=== PATIENT | female | born 1985 | race Caucasian/White ===

== ENCOUNTER 2016-09-25 19:41 | Inpatient (IN) | payer OTHER ==
[~2016-09-25] VITALS: Ht 170.2 cm; Wt 83.9 kg
[~2016-09-25 19:41] MED LIST: Benzocaine TOP; IBUP600 PO; PERI8.6T PO
[2016-09-25] MEDS ORDERED: LACTATED RINGER'S 1000 ML INJ 1,000 ML IV PRN (20:22)
[2016-09-25] MEDS ORDERED: SODIUM CHLOR 0.9% 1000 ML INJ 1,000 ML OTHER PRN (20:22)
[2016-09-25] MEDS ORDERED: ONDANSETRON HCL 4 MG/2 ML VIAL IV PRN (20:30)
[2016-09-25] MEDS ORDERED: SODIUM CHLORID 0.9% 500 ML INJ 500 ML IV PRN (20:30)
[2016-09-25] MEDS ORDERED: LIDOCAINE HCL 1% 50 ML VIAL INFIL PRN (20:30)
[2016-09-25] MEDS ORDERED: CITRIC ACID-SODIUM CITRATE LIQ 30 ML UDC PO SCH (20:30)
[2016-09-25] MEDS ORDERED: ZANT150T2 PO (20:30)
[2016-09-25] MEDS ORDERED: LIDOCAINE HCL 1% 50 ML VIAL I-DERMAL PRN (20:30)
[2016-09-25] MEDS ORDERED: OXYTOCIN 30 UNITS-500ML PREMIX 500 ML IV ONE (20:30)
[2016-09-25] MEDS ORDERED: SODIUM CHLORIDE 0.9% FLUSH 5 ML FLUSH IV FLUSH PRN (20:30)
[2016-09-25] MEDS ORDERED: DINOPROSTONE 10 MG VAG INSERT VAGINAL ONE (20:30)
[2016-09-25] MEDS ORDERED: MINERAL OIL 10 ML VIAL TOPICAL PRN (20:30)
[2016-09-25 20:31] VITALS: BP 130/91; PULSE 78
[2016-09-25] MEDS ORDERED: SODIUM CHLOR 0.9% 1000 ML INJ 1,000 ML IV PRN (20:42)
[2016-09-25 20:45] VITALS: RESP 18; TEMP 98.2
[2016-09-25 21:07] LABS: AUTOMATED NEUTROPHIL # 7.1 TH/MM3 (1.8-7.7); BASOPHIL % 0.4 % (0.0-2.0); EOSINOPHIL # 0.1 TH/MM3 (0-0.4); EOSINOPHIL % 0.9 % (0.0-4.0); HEMATOCRIT 29.4 % (35.0-46.0); HEMO FLAGS DIFF FINAL; LYMPH % 17.4 % (9.0-44.0); LYMPHOCYTE # 1.7 TH/MM3 (1.0-4.8); MEAN CELL VOLUME 84.2 FL (80.0-100.0); MEAN CORPUSCULAR HEMOGLOBIN 28.1 PG (27.0-34.0); MEAN CORPUSCULAR HGB CONC 33.4 % (32.0-36.0); MONO % 7.2 % (0.0-8.0); NEUT % 74.1 % (16.0-70.0); PLATELET COUNT 214 TH/MM3 (150-450); RED BLOOD COUNT 3.48 MIL/MM3 (4.00-5.30); RED CELL DISTRIBUTION WIDTH 16.7 % (11.6-17.2); WHITE BLOOD COUNT 9.5 TH/MM3 (4.0-11.0)
[2016-09-25 21:09] LABS: BACTERIA, URINE RARE /hpf; BLOOD, URINE NEG (NEG); COMMENT (UR) CULT NOT INDICATED; CULTURE IF INDICATED CULT NOT INDICATED; GLUCOSE,URINE NEG (NEG); KETONE, URINE NEG (NEG); NITRITE,URINE NEG (NEG); SQUAMOUS EPITHELIAL CELL URINE 1 /hpf (0-5); URINE COLOR COLORLESS (YELLW/STRAW)
[2016-09-25 21:53] LABS: ALKALINE PHOSPHATASE 196 U/L (45-117); ALT (GPT) 14 U/L (10-53); ANION GAP 9 MEQ/L (5-15); AST (GOT) 14 U/L (15-37); BICARBONATE 24.8 MEQ/L (21.0-32.0); BLOOD UREA NITROGEN 14 MG/DL (7-18); CHLORIDE 101 MEQ/L (98-107); GLOMERULAR FILTRATION RATE 101 ML/MIN (>89); SODIUM (NA) 135 MEQ/L (136-145); TOTAL BILIRUBIN ADULT 0.1 MG/DL (0.2-1.0); URIC ACID 3.6 MG/DL (2.6-6.0)
[2016-09-26] VITALS (12 sets, daily range): BP systolic 127–146; BP diastolic 76–99; PULSE 86–105; RESP 18; TEMP 97.5–98
[2016-09-26] MEDS ORDERED: ePHEDrine/NS 25 MG/5 ML SYR ONE (01:57)
[2016-09-26] MEDS ORDERED: fentaNYL 2MCG-BUPIV 0.125% INJ 100 ML ONE (01:57)
--- NOTE | 2016-09-26 02:35 | PD.OB.DELI ---
Anesthesia: Lidocaine local to perineum Episiotomy: None Vaginal Delivery: Normal Presentation: Occiput anterior Nuchal Cord: x1 Delayed cord clamping (45 sec): No Infant: Female One Minute : 8 Five Minute : 9 Weight: 3080 Care: Suctioned, Spontaneous crying, Responded to stimulation Placenta: Spontaneous delivery, Intact Laceration: Perineal laceration, 2 deg Repair: Chromic running Tad Parker II, MD Sep 26, 2016 02:35
[2016-09-26] MEDS ORDERED: ZOLPIDEM TARTRATE 5 MG TAB PO PRN (02:45)
[2016-09-26] MEDS ORDERED: ACETAMINOPHEN 325 MG TAB PO PRN (02:45)
[2016-09-26] MEDS ORDERED: WITCH HAZEL 50%/GLYCERIN 12.5% 40 PAD JAR TOPICAL PRN (02:45)
[2016-09-26] MEDS ORDERED: SODIUM CHLORIDE 0.9% FLUSH 5 ML FLUSH IV PRN (02:45)
[2016-09-26] MEDS ORDERED: BENZOCAINE 20% TOPICAL SPRAY 60 ML CAN TOPICAL PRN (02:45)
[2016-09-26] MEDS: oxyCODONE/ACETAMINOPHEN 5 MG/325 MG TAB PO PRN ×2 (02:45→06:38)
[2016-09-26] MEDS ORDERED: ONDANSETRON ODT 4 MG TAB PO PRN (02:45)
[2016-09-26] MEDS ORDERED: oxyCODONE/ACETAMINOPHEN 5 MG/325 MG TAB PO PRN (02:45)
[2016-09-26] MEDS ORDERED: ALUMINUM/MAGNESIUM/SIMETH 30 ML CUP PO PRN (02:45)
[2016-09-26] MEDS: IBUPROFEN 600 MG TAB PO PRN ×3 (02:45→20:20)
[2016-09-26] MEDS: DOCUSATE SODIUM 50 MG/SENNA 8.6 MG TAB PO PRN ×2 (05:37→20:20)
--- NOTE | 2016-09-26 08:31 | HHI.OB ---
Subjective Post Day: 0 Remarks Doing well, precipitous delivery last AM, Objective Vitals/I&O Vital Signs Date Time Temp Pulse Resp B/P Pulse Ox O2 Delivery O2 Flow Rate FiO2 09/26/16 08:00 98.0 94 18 131/79 09/26/16 05:15 97.5 97 18 135/89 09/26/16 04:15 90 142/83 09/26/16 04:00 90 134/87 09/26/16 03:45 104 133/90 09/26/16 03:30 91 132/82 09/26/16 03:15 91 127/79 09/26/16 03:00 18 09/26/16 03:00 89 129/85 09/26/16 02:45 97 128/76 09/26/16 02:45 97.9 18 09/26/16 02:37 105 131/81 09/26/16 00:14 86 136/99 09/26/16 00:00 97 146/95 09/26/16 00:00 97 146/95 09/26/16 00:00 97.9 18 09/25/16 20:45 98.2 18 09/25/16 20:31 78 130/91 Objective Remarks GENERAL: Well-nourished, well-developed patient. CARDIOVASCULAR: Regular rate and rhythm without murmurs, gallops, or rubs. RESPIRATORY: Breath sounds equal bilaterally. No accessory muscle use. ABDOMEN/GI: Abdomen soft, non-tender. Fundus: Firm, non-tender at umbilicus. GENITOURINARY: Light to moderate bleeding. EXTREMITIES: No cyanosis or edema, non-tender, without signs of DVT. Medications and IVs Current Medications Medications (Trade) Dose Ordered Sig/Isaiah Route Start Time Stop Time Status Last Admin Lactated Ringer's 1,000 ml @ 125 mls/hr Q8H IV 09/25/16 20:22 Lactated Ringer's 1,000 ml @ 3,000 mls/hr Q20M PRN IV 09/25/16 20:22 Sodium Chloride 500 ml @ 1,000 mls/hr ONCE PRN IV 09/25/16 20:30 10/25/16 20:29 (NS 1000 ml Inj) 1,000 ml @ 100 mls/hr Q10H PRN IV 09/25/16 20:42 (Zofran Inj) 4 mg Q6H PRN IV 09/25/16 20:30 (fentaNYL INJ) 50 mcg Q1H PRN IV PUSH 09/25/16 20:30 (fentaNYL INJ) 100 mcg Q1H PRN IV PUSH 09/25/16 20:30 (Muri-Lube Oil) 10 ml UNSCH PRN TOPICAL 09/25/16 20:30 (NS Flush) 2 ml BID IV FLUSH 09/25/16 21:00 IV Flush 2 ml 2 ml UNSCH PRN IV FLUSH 09/25/16 20:30 (NS 1000 ml Inj) 1,000 ml @ 0 mls/hr Q0M PRN OTHER 09/25/16 20:22 09/26/16 20:21 (NS Flush) 2 ml BID IV 09/26/16 09:00 (NS Flush) 2 ml UNSCH PRN IV 09/26/16 02:45 (Tylenol) 650 mg Q4H PRN PO 09/26/16 02:45 (Motrin) 600 mg Q6H PRN PO 09/26/16 02:45 09/26/16 02:45 (Percocet 5-325 Mg) 1 tab Q4H PRN PO 09/26/16 02:45 (Percocet 5-325 Mg) 2 tab Q4H PRN PO 09/26/16 02:45 09/26/16 06:38 (Americaine 20% Top Spr) 1 spray Q4H PRN TOPICAL 09/26/16 02:45 09/26/16 05:37 (Tucks Pads) 1 applic QID PRN TOPICAL 09/26/16 02:45 09/26/16 05:37 (Alicia-Colace) 2 tab Q12H PRN PO 09/26/16 02:45 09/26/16 05:37 (Ambien) 5 mg HS PRN PO 09/26/16 02:45 (M-M-R Ii Inj) 0.5 ml ONCE ONCE SQ 09/26/16 16:00 09/26/16 16:01 (Boostrix Inj) 0.5 ml ONCE ONCE IM 09/26/16 16:00 09/26/16 16:01 (Mag-Al Plus Susp Liq) 15 ml Q8H PRN PO 09/26/16 02:45 (Zofran Odt) 4 mg Q6H PRN PO 09/26/16 02:45 Assessment/Plan Assessment and Plan PPD#0, Stable, will watch BP, GBS+, Discharge Planning Does not meet criteria Berhane Garcia MD Sep 26, 2016 08:31
[2016-09-26] MEDS ORDERED: DIPHTH/TETANUS/ACEL PERTUSSIS (BOOSTER) 0.5 ML VIAL/PFS IM ONE (16:00)
[2016-09-26] MEDS ORDERED: MEASLES, MUMPS, RUBELLA VACCINE 0.5 ML VIAL SQ ONE (16:00)
[2016-09-27] MEDS: IBUPROFEN 600 MG TAB PO PRN ×3 (08:37→20:38)
[2016-09-27] MEDS: DOCUSATE SODIUM 50 MG/SENNA 8.6 MG TAB PO PRN (08:37)
[2016-09-27] MEDS: SODIUM CHLORIDE 0.9% FLUSH 5 ML FLUSH IV SCH (09:00)
[2016-09-27] MEDS: SODIUM CHLORIDE 0.9% FLUSH 5 ML FLUSH IV FLUSH SCH (09:00)
--- NOTE | 2016-09-27 11:28 | HHI.OB ---
Subjective Post Day: 1 Remarks PPD#1, , BP stable, GBS + Objective Objective Remarks GENERAL: Well-nourished, well-developed patient. CARDIOVASCULAR: Regular rate and rhythm without murmurs, gallops, or rubs. RESPIRATORY: Breath sounds equal bilaterally. No accessory muscle use. ABDOMEN/GI: Abdomen soft, non-tender. Fundus: Firm, non-tender at umbilicus. GENITOURINARY: Light to moderate bleeding. EXTREMITIES: No cyanosis or edema, non-tender, without signs of DVT. Medications and IVs Current Medications Medications (Trade) Dose Ordered Sig/Isaiah Route Start Time Stop Time Status Last Admin Lactated Ringer's 1,000 ml @ 125 mls/hr Q8H IV 09/25/16 20:22 Lactated Ringer's 1,000 ml @ 3,000 mls/hr Q20M PRN IV 09/25/16 20:22 Sodium Chloride 500 ml @ 1,000 mls/hr ONCE PRN IV 09/25/16 20:30 10/25/16 20:29 (NS 1000 ml Inj) 1,000 ml @ 100 mls/hr Q10H PRN IV 09/25/16 20:42 (Zofran Inj) 4 mg Q6H PRN IV 09/25/16 20:30 (fentaNYL INJ) 50 mcg Q1H PRN IV PUSH 09/25/16 20:30 (fentaNYL INJ) 100 mcg Q1H PRN IV PUSH 09/25/16 20:30 (Muri-Lube Oil) 10 ml UNSCH PRN TOPICAL 09/25/16 20:30 (NS Flush) 2 ml BID IV FLUSH 09/25/16 21:00 (NS Flush) 2 ml UNSCH PRN IV FLUSH 09/25/16 20:30 (NS Flush) 2 ml BID IV 09/26/16 09:00 (NS Flush) 2 ml UNSCH PRN IV 09/26/16 02:45 (Tylenol) 650 mg Q4H PRN PO 09/26/16 02:45 (Motrin) 600 mg Q6H PRN PO 09/26/16 02:45 09/27/16 08:37 (Percocet 5-325 Mg) 1 tab Q4H PRN PO 09/26/16 02:45 09/26/16 14:17 (Percocet 5-325 Mg) 2 tab Q4H PRN PO 09/26/16 02:45 09/26/16 06:38 (Americaine 20% Top Spr) 1 spray Q4H PRN TOPICAL 09/26/16 02:45 09/26/16 05:37 (Tucks Pads) 1 applic QID PRN TOPICAL 09/26/16 02:45 09/26/16 05:37 (Alicia-Colace) 2 tab Q12H PRN PO 09/26/16 02:45 09/27/16 08:37 (Ambien) 5 mg HS PRN PO 09/26/16 02:45 (Mag-Al Plus Susp Liq) 15 ml Q8H PRN PO 09/26/16 02:45 (Zofran Odt) 4 mg Q6H PRN PO 09/26/16 02:45 Assessment/Plan Assessment and Plan PPD#1, Stable, BPR normal, GBS+, Discharge Planning Does not meet criteria Attending Attestation Seen by Berhane Blair MD Sep 27, 2016 11:28
[2016-09-27] MEDS ORDERED: IBUP-232 PO (11:29)
--- NOTE | 2016-09-27 11:30 | HHI.DS ---
Admission Date Sep 25, 2016 at 19:41 Admitting Diagnosis Diagnosis: Vaginal Delivery: Normal Infant: Female Pt Condition on Discharge: Good Discharge Disposition: Discharge Home Discharge Instructions Diet Instructions: As Tolerated, No Restrictions Activities You Can Perform: Shower Only-No Bath Activities to Avoid: Driving for 24 hrs, Prolonged Standing, Strenuous Activity , Sexual Activity Berhane Garcia MD Sep 27, 2016 11:30
[2016-09-27] MEDS: LACTATED RINGER'S 1000 ML INJ 1,000 ML IV SCH (11:34)
[2016-09-28] MEDS: IBUPROFEN 600 MG TAB PO PRN (06:02)
[2016-09-28] MEDS: DOCUSATE SODIUM 50 MG/SENNA 8.6 MG TAB PO PRN (08:07)
[2016-09-28] MEDS: SODIUM CHLORIDE 0.9% FLUSH 5 ML FLUSH IV SCH (09:00)
[2016-09-28] MEDS: SODIUM CHLORIDE 0.9% FLUSH 5 ML FLUSH IV FLUSH SCH (09:00)
[2016-09-28] MEDS: LACTATED RINGER'S 1000 ML INJ 1,000 ML IV SCH (09:35)
--- NOTE | 2016-09-28 11:11 | HHI.OB ---
Subjective Post Day: 2 Remarks PPD#2, Stable BPR; Plan discharge Objective Objective Remarks GENERAL: Well-nourished, well-developed patient. CARDIOVASCULAR: Regular rate and rhythm without murmurs, gallops, or rubs. RESPIRATORY: Breath sounds equal bilaterally. No accessory muscle use. ABDOMEN/GI: Abdomen soft, non-tender. Fundus: Firm, non-tender at umbilicus. GENITOURINARY: Light to moderate bleeding. EXTREMITIES: No cyanosis or edema, non-tender, without signs of DVT. Medications and IVs Current Medications Medications (Trade) Dose Ordered Sig/Isaiah Route Start Time Stop Time Status Last Admin Lactated Ringer's 1,000 ml @ 125 mls/hr Q8H IV 09/25/16 20:22 Lactated Ringer's 1,000 ml @ 3,000 mls/hr Q20M PRN IV 09/25/16 20:22 Sodium Chloride 500 ml @ 1,000 mls/hr ONCE PRN IV 09/25/16 20:30 10/25/16 20:29 (NS 1000 ml Inj) 1,000 ml @ 100 mls/hr Q10H PRN IV 09/25/16 20:42 (Zofran Inj) 4 mg Q6H PRN IV 09/25/16 20:30 (fentaNYL INJ) 50 mcg Q1H PRN IV PUSH 09/25/16 20:30 (fentaNYL INJ) 100 mcg Q1H PRN IV PUSH 09/25/16 20:30 (Muri-Lube Oil) 10 ml UNSCH PRN TOPICAL 09/25/16 20:30 (NS Flush) 2 ml BID IV FLUSH 09/25/16 21:00 (NS Flush) 2 ml UNSCH PRN IV FLUSH 09/25/16 20:30 (NS Flush) 2 ml BID IV 09/26/16 09:00 (NS Flush) 2 ml UNSCH PRN IV 09/26/16 02:45 (Tylenol) 650 mg Q4H PRN PO 09/26/16 02:45 (Motrin) 600 mg Q6H PRN PO 09/26/16 02:45 09/28/16 06:02 (Percocet 5-325 Mg) 1 tab Q4H PRN PO 09/26/16 02:45 09/26/16 14:17 (Percocet 5-325 Mg) 2 tab Q4H PRN PO 09/26/16 02:45 09/26/16 06:38 (Americaine 20% Top Spr) 1 spray Q4H PRN TOPICAL 09/26/16 02:45 09/26/16 05:37 (Tucks Pads) 1 applic QID PRN TOPICAL 09/26/16 02:45 09/26/16 05:37 (Alicia-Colace) 2 tab Q12H PRN PO 09/26/16 02:45 09/28/16 08:07 (Ambien) 5 mg HS PRN PO 09/26/16 02:45 (Mag-Al Plus Susp Liq) 15 ml Q8H PRN PO 09/26/16 02:45 (Zofran Odt) 4 mg Q6H PRN PO 09/26/16 02:45 Assessment/Plan Assessment and Plan PPD#2; Stable, BPR normal, GBS+, Discharge Planning routine Attending Attestation Seen by Berhane Blair MD Sep 28, 2016 11:11
== END 2016-09-28 12:34 | disposition home or self-care (01) | DRG 775 ==
LOC: H2EB 19:41 → H1EA 09-26 04:40
PROVIDERS: ADMIT Obstetrics & Gynecology; ATTEND Obstetrics & Gynecology
PROC: 10E0XZZ Delivery of Products of Conception, External Approach (ICD-10-PCS; principal; 2016-09-26)
PROC: 0KQM0ZZ Repair Perineum Muscle, Open Approach (ICD-10-PCS; 2016-09-26)
DX: O69.81X0 Labor and delivery complicated by cord around neck, without compression, not applicable or unspecified (principal); O99.824 Streptococcus B carrier state complicating childbirth; O70.1 Second degree perineal laceration during delivery; Z3A.00 Weeks of gestation of pregnancy not specified; Z37.0 Single live birth
CPT/HCPCS: 80053; 81001; 84550; 85025; 86900; 86901; J2590

== ENCOUNTER 2017-01-29 11:40 | Emergency (ER) | payer OTHER ==
[~2017-01-29] VITALS: Ht 170.2 cm; Wt 72.7 kg
[~2017-01-29 11:40] MED LIST changes: -Benzocaine TOP; +IBUP-232 PO; -IBUP600 PO; -PERI8.6T PO; +ZANT150T2 PO
[2017-01-29 11:43] VITALS: BP 151/92; PULSE 115; RESP 22; TEMP 99; O2SAT 98
[2017-01-29] MEDS ORDERED: birth control pills (12:37)
[2017-01-29 12:45] VITALS: O2SAT 100
[2017-01-29] MEDS ORDERED: ASPIRIN 81 MG CHEW TAB PO ONE (12:45)
[2017-01-29] MEDS ORDERED: SODIUM CHLORIDE 0.9% FLUSH 10 ML FLUSH IVF PRN (12:45)
--- NOTE | 2017-01-29 13:04 | PD ---
HPI . Chest pain and shortness of breath Chief Complaint: Chest Pain Time Seen by Provider: 12:42 Travel History International Travel<30 days: No Contact w/Intl Traveler<30days: No Traveled to known affect area: No History of Present Illness HPI Patient presents with the acute onset of chest pain, shortness of breath, dizziness, rapid heart beat. It all started 30 minutes ago. The chest pain is characterized as a pressure is rated at 3/10. Patient does report a positive previous similar history. She states that she was evaluated but nothing was found. Patient reports no modifying factors. PFSH Past Medical History ?: Not LMP: CURRENTLY Social History Alcohol Use: No Tobacco Use: No Substance Use: No Allergies-Medications (Allergen,Severity, Reaction): Coded Allergies: No Known Allergies (Unverified , 01/29/17) Reported Meds & Prescriptions Reported Meds & Active Scripts Active Reported [ control pills] Review of Systems Except as stated in HPI: all other systems reviewed are Neg HENT: Positive: Lightheadedness Cardiovascular: Positive: Chest Pain or Discomfort, Tachycardia Physical Exam Narrative GENERAL: Awake and alert and in no acute distress. SKIN: Warm and dry. HEAD: Atraumatic. Normocephalic. EYES: Pupils equal and round. Extraocular movements are intact. ENT: No nasal bleeding or discharge. Mucous membranes pink and moist. NECK: Trachea midline. Neck is supple. CARDIOVASCULAR: Sinus tachycardia at about 130. Heart sounds are normal. RESPIRATORY: No accessory muscle use. Lungs are clear with full air movement throughout. GASTROINTESTINAL: Abdomen soft, non-tender, nondistended. MUSCULOSKELETAL: No obvious deformities. No edema. NEUROLOGICAL: Awake and alert. No obvious cranial nerve deficits. Motor grossly within normal limits. Normal speech. PSYCHIATRIC: Appropriate mood and affect; insight and judgment normal. Data Data Last Documented VS Vital Signs Date Time Temp Pulse Resp B/P Pulse Ox O2 Delivery O2 Flow Rate FiO2 01/29/17 14:38 100 16 119/67 100 Room Air 01/29/17 11:43 99.0 Orders Basic Metabolic Panel (Bmp) (01/29/17 12:42) Ckmb (Isoenzyme) Profile (01/29/17 12:42) Complete Blood Count With Diff (01/29/17 12:42) D-Dimer (01/29/17 12:42) Magnesium (Mg) (01/29/17 12:42) Troponin I (01/29/17 12:42) Chest, Single Ap (01/29/17 12:42) Ecg Monitoring (01/29/17 12:42) Iv Access Insert/Monitor (01/29/17 12:42) Oximetry (01/29/17 12:42) Aspirin Chew (Aspirin Chew) (01/29/17 12:45) Sodium Chloride 0.9% Flush (Ns Flush) (01/29/17 12:45) Ct Pulmonary Angiogram (01/29/17 13:32) Electrocardiogram (01/29/17 12:01) Ed Urine Pregnancytest Poc (01/29/17 14:06) Iohexol 350 Inj (Omnipaque 350 Inj) (01/29/17 14:37) Labs Laboratory Tests Test 01/29/17 12:50 White Blood Count 7.3 TH/MM3 Red Blood Count 4.52 MIL/MM3 Hemoglobin 12.6 GM/DL Hematocrit 37.6 % Mean Corpuscular Volume 83.4 FL Mean Corpuscular Hemoglobin 27.9 PG Mean Corpuscular Hemoglobin 33.5 % Concent Red Cell Distribution Width 16.2 % Platelet Count 272 TH/MM3 Mean Platelet Volume 8.1 FL Neutrophils (%) (Auto) 75.8 % Lymphocytes (%) (Auto) 16.6 % Monocytes (%) (Auto) 6.5 % Eosinophils (%) (Auto) 0.6 % Basophils (%) (Auto) 0.5 % Neutrophils # (Auto) 5.5 TH/MM3 Lymphocytes # (Auto) 1.2 TH/MM3 Monocytes # (Auto) 0.5 TH/MM3 Eosinophils # (Auto) 0.0 TH/MM3 Basophils # (Auto) 0.0 TH/MM3 CBC Comment DIFF FINAL Differential Comment D-Dimer Quantitative (PE/DVT) 0.63 MG/L FEU Sodium Level 137 MEQ/L Potassium Level 4.2 MEQ/L Chloride Level 104 MEQ/L Carbon Dioxide Level 24.1 MEQ/L Anion Gap 9 MEQ/L Blood Urea Nitrogen 11 MG/DL Creatinine 0.79 MG/DL Estimat Glomerular Filtration 85 ML/MIN Rate Random Glucose 106 MG/DL Calcium Level 8.7 MG/DL Magnesium Level 2.2 MG/DL Total Creatine Kinase 86 U/L Troponin I LESS THAN 0.02 NG/ML MDM Medical Decision Making Medical Screen Exam Complete: Yes Emergency Medical Condition: Yes Interpretation(s) EKG shows sinus tachycardia with no acute ischemic change. Differential Diagnosis Differential diagnosis of tachycardia includes but is not limited to PSVT, atrial fibrillation with a rapid ventricular response, sinus tachycardia (due to hypovolemia, anemia, thyrotoxicosis, PE) Narrative Course Patient presents with tachycardia associated with chest discomfort and shortness of breath. The tachycardia is sinus. CBC & BMP Diagram 01/29/17 12:50 Cardiac enzymes are negative. D-dimer was 0.63. This prompted a CT for PE. The CT for PE was negative. Emergency Department evaluation reveals no emergency medical condition. The patient is stable for discharge to home. Diagnosis Primary Impression: Sinus tachycardia Patient Instructions: Atrial Tachycardia (DC), General Instructions Disposition: 01 DISCHARGE HOME Condition: Stable Danyelle Yeager MD Jan 29, 2017 13:04
[2017-01-29 13:18] LABS: AUTOMATED NEUTROPHIL # 5.5 TH/MM3 (1.8-7.7); BASOPHIL % 0.5 % (0.0-2.0); EOSINOPHIL % 0.6 % (0.0-4.0); HEMATOCRIT 37.6 % (35.0-46.0); HEMO FLAGS DIFF FINAL; LYMPH % 16.6 % (9.0-44.0); LYMPHOCYTE # 1.2 TH/MM3 (1.0-4.8); MEAN CELL VOLUME 83.4 FL (80.0-100.0); MEAN CORPUSCULAR HEMOGLOBIN 27.9 PG (27.0-34.0); MEAN CORPUSCULAR HGB CONC 33.5 % (32.0-36.0); MONO % 6.5 % (0.0-8.0); NEUT % 75.8 % (16.0-70.0); PLATELET COUNT 272 TH/MM3 (150-450); RED BLOOD COUNT 4.52 MIL/MM3 (4.00-5.30); RED CELL DISTRIBUTION WIDTH 16.2 % (11.6-17.2); WHITE BLOOD COUNT 7.3 TH/MM3 (4.0-11.0)
--- NOTE | 2017-01-29 13:32 | RADRPT ---
EXAM DATE/TIME: 01/29/2017 12:58 [facility] COMPARISON: No previous studies available for comparison. INDICATIONS : Chest pain. MEDICAL HISTORY : None. SURGICAL HISTORY : None. ENCOUNTER: Initial ACUITY: 1 day PAIN SCORE: 4/10 LOCATION: Left chest FINDINGS: A single view of the chest demonstrates the lungs to be symmetrically aerated without evidence of mas s, infiltrate or effusion. The cardiomediastinal contours are unremarkable. Osseous structures are intact. CONCLUSION: 1. No acute cardiopulmonary findings Jonathon Redd MD on January 29, 2017 at 13:30 Board Certified Radiologist. This report was verified electronically.
[2017-01-29 13:45] LABS: ANION GAP 9 MEQ/L (5-15); BICARBONATE 24.1 MEQ/L (21.0-32.0); BLOOD UREA NITROGEN 11 MG/DL (7-18); CHLORIDE 104 MEQ/L (98-107); GLOMERULAR FILTRATION RATE 85 ML/MIN (>89); MAGNESIUM 2.2 MG/DL (1.5-2.5); POTASSIUM 4.2 MEQ/L (3.5-5.1); SODIUM (NA) 137 MEQ/L (136-145)
[2017-01-29 14:02] LABS: CREATINE KINASE 86 U/L (26-192)
[2017-01-29] MEDS ORDERED: IOHEXOL 350 MG/ML 10 ML VIAL (for RAD DIAG) IV ONE ×2 (14:37→15:21)
[2017-01-29 14:38] VITALS: BP 119/67; PULSE 100; RESP 16; O2SAT 100
--- NOTE | 2017-01-29 14:51 | RADRPT ---
EXAM DATE/TIME: 01/29/2017 14:27 [facility] COMPARISON: No previous studies available for comparison. INDICATIONS : Dyspnea, chest pressure IV CONTRAST: 74 cc Omnipaque 350 (iohexol) IV RADIATION DOSE: 23.37 CTDIvol (mGy) MEDICAL HISTORY : None SURGICAL HISTORY : None. ENCOUNTER: Initial ACUITY: 1 day PAIN SCALE: 5/10 LOCATION: chest TECHNIQUE: Volumetric scanning of the chest was performed using a pulmonary embolism protocol MIP images were re constructed. Using automated exposure control and adjustment of the mA and/or kV according to patien t size, radiation dose was kept as low as reasonably achievable to obtain optimal diagnostic quality images. FINDINGS: PULMONARY ARTERIES: No filling defects are seen in the pulmonary arteries through the segmental level. LUNGS: There is no consolidation or pneumothorax . No concerning pulmonary nodule is visualized. PLEURAE: There is no pleural thickening or pleural effusion. MEDIASTINUM: There is good visualization of the great vessels of the middle mediastinum. No evidence of mediastin al or hilar adenopathy/mass. MUSCULOSKELETAL: Within normal limits for patient age. MISCELLANEOUS: The visualized upper abdominal organs demonstrate no acute abnormality. CONCLUSION: 1. Negative for pulmonary embolic disease. No effusions or adenopathy. Timbo Smith MD on January 29, 2017 at 14:42 Board Certified Radiologist. This report was verified electronically.
--- NOTE | 2017-01-30 16:10 | EKG ---
Date Performed: 01/29/2017 Time Performed: 12:01:50 PTAGE: 31 years EKG: SINUS TACHYCARDIA ABNORMAL RHYTHM ECG NO PREVIOUS TRACING DOCTOR: Cheo Crawford Interpretating Date/Time 01/30/2017 16:09:22
== END 2017-01-29 15:05 | disposition home or self-care (01) ==
LOC: NEPD 11:40
DX: R00.0 Tachycardia, unspecified (principal); R42 Dizziness and giddiness; R07.89 Other chest pain
CPT/HCPCS: 71010; 71275; 80048; 82550; 83735; 84484; 84703; 85025; 85379; 93005; 99285; Q9967